=== PATIENT | female | born 1965 | race Caucasian/White ===

== ENCOUNTER 2024-07-22 08:08 | Emergency (ER) | payer BC ==
[2024-07-22] VITALS (7 sets, daily range): BP systolic 171–193; BP diastolic 66–106
[~2024-07-22] VITALS: Ht 175.3 cm; Wt 127.0 kg
[2024-07-22 09:13] LABS: BASO% 0.9 % (0-3); EOS% 2.3 % (0-8); HEMATOCRIT 38.8 % (37.0-47.0); HEMOGLOBIN 12.6 g/dl (12.0-16.0); LYMPH% 27.5 % (15-41); MEAN CELL VOLUME 92.6 fL CALC (80.0-100.0); MEAN CORPUSCULAR HGB 30.1 pG CALC (26.0-32.0); MEAN CORPUSCULAR HGB CONC 32.5 g/dL CAL (32.0-36.0); MONO% 6.7 % (2-13); NEUT# 2.71 thou/uL (2.00-7.15); NEUT% 62.6 % (42-76); RED BLOOD COUNT 4.19 mill/uL (4.20-5.60); RED CELL DISTRI WIDTH 11.8 % (11.5-15.5)
[2024-07-22 09:29] LABS: PROTHROMBIN TIME 10.5 SECONDS (9.0-12.5)
[2024-07-22 09:46] LABS: CREATININE 0.8 mg/dL (0.5-1.0)
[2024-07-22 09:48] LABS: POTASSIUM 3.8 mmol/l (3.5-5.1)
== END 2024-07-22 12:52 | disposition home or self-care (01) | DRG 605 ==
LOC: ED 08:08
PROVIDERS: Emergency Medicine
DX: S80.11XA Contusion of right lower leg, initial encounter (principal); I10 Essential (primary) hypertension; W01.0XXA Fall on same level from slipping, tripping and stumbling without subsequent striking against object, initial encounter
CPT/HCPCS: Q9967